=== PATIENT | female | born 1945 | race Caucasian/White ===

== ENCOUNTER → 2017-01-17 | Outpatient (REF) | payer MEDICARE | LOC: M SFHCWAGY 11:22 | PROVIDERS: ATTEND Nurse Practitioner Women's Health | DX: N90.4 Leukoplakia of vulva (principal); Z80.41 Family history of malignant neoplasm of ovary; Z87.42 Personal history of other diseases of the female genital tract ==

== ENCOUNTER → 2017-01-17 | Outpatient (CLI) | payer MEDICARE ==
[~2017-01-17] MED LIST: ALLO100T PO; AMIT25TA PO; ASPI81TA85 PO; ATEN25TA PO; ATOR1TAB19 PO; CALC600T57 PO; FLUO20CA8 PO; GABA-282 PO; MULT1CHW39 PO; VITA100037 PO; VITA50TA PO
--- NOTE | 2017-01-17 12:51 | REPMRS ---
Patient History The patient states she had a clinical breast exam in 01/04 Family history of ovarian cancer in mother at age 50 or over. Benign stereotactic core biopsy of the left breast, 2009. Digital Woman Screen Mammo: January 17, 2017 - Exam #: [id number] Bilateral CC and MLO view(s) were taken. Technologist: Arlyn Larkin, Technologist Prior study comparison: January 17, 2016, digital woman screen mammo performed at [facility]. November 05, 2014, digital woman screen mammo performed at [facility] to [facility]. FINDINGS: There are scattered fibroglandular densities. There has been no change in the appearance of the mammogram from the prior studies. There is a mild amount of residual fibroglandular tissue which is fairly symmetric. A left breast stereotactic clip again seen. There is no interval development of dominant mass, architectural distortion, or clustered microcalcification suggestive of malignancy. Scattered lymph nodes are seen in the axillae. There are scattered, small, benign calcifications of doubtful clinical significance. No significant changes when compared with prior studies. ASSESSMENT: BI-RADS/ACR category 2 mammogram. Benign finding(s). Recommendation Routine screening mammogram in 1 year (for women over age 40). This mammogram was interpreted with the aid of an FDA-approved computer-aided dectection system. A. Negative x-ray reports should not delay biopsy if a dominant or clinically suspicious mass is present. B. Four to eight percent of cancers are not identified by mammography. C. Adenosis and dense breast may obscure an underlying neoplasm. Electronically Signed By: Tommie Ortiz MD 01/17/17 1722
== END ==
LOC: M WHC 11:07
PROVIDERS: ATTEND Nurse Practitioner Women's Health
DX: Z12.31 Encounter for screening mammogram for malignant neoplasm of breast (principal); Z92.89 Personal history of other medical treatment; Z80.41 Family history of malignant neoplasm of ovary; N90.4 Leukoplakia of vulva; Z87.42 Personal history of other diseases of the female genital tract
CPT/HCPCS: 86304; G0101; G0202

== ENCOUNTER → 2017-02-21 | Outpatient (CLI) | payer MEDICARE ==
[~2017-02-21] VITALS: Ht 177.8 cm; Wt 99.8 kg
[~2017-02-21] MED LIST changes: +NS 1,000 ML IV ONE; +PROPOFOL 200 MG/20 ML VIAL As Ordered ONE
--- NOTE | 2017-02-21 09:57 | ROOR ---
Patient Name: Brooklyn Montiel Procedure Date: 02/21/2017 9:32 AM Date of : 1945 Age: 71 Room: [facility] Gender: Female Note Status: Finalized Procedure: Colonoscopy Indications: High risk colon cancer surveillance: Personal history of colonic polyps Providers: Roshan Shirley Jr, MD Referring MD: Jeanette Ortiz DO Requesting Provider: Medicines: Propofol per Anesthesia Complications: No immediate complications. Procedure: Pre-Anesthesia Assessment: - Prior to the procedure, a History and Physical was performed, and patient medications and allergies were reviewed. The patient is competent. The risks and benefits of the procedure and the sedation options and risks were discussed with the patient. All questions were answered and informed consent was obtained. Patient identification and proposed procedure were verified by the physician and the nurse in the pre-procedure area and in the procedure room. Mental Status Examination: alert and oriented. Airway Examination: normal oropharyngeal airway and neck mobility. Respiratory Examination: clear to auscultation. CV Examination: normal. ASA Grade Assessment: II - A patient with mild systemic disease. After reviewing the risks and benefits, the patient was deemed in satisfactory condition to undergo the procedure. The anesthesia plan was to use moderate sedation / analgesia (conscious sedation). Immediately prior to administration of medications, the patient was re-assessed for adequacy to receive sedatives. The heart rate, respiratory rate, oxygen saturations, blood pressure, adequacy of pulmonary ventilation, and response to care were monitored throughout the procedure. The physical status of the patient was re-assessed after the procedure. The Colonoscope was introduced through the anus and advanced to the hepatic flexure. The patient tolerated the procedure well. The quality of the bowel preparation was fair and poor. The colonoscopy was performed with moderate difficulty due to poor bowel prep and significant looping. Successful completion of the procedure was aided by changing the patient's position, using manual pressure, withdrawing and reinserting the scope and straightening and shortening the scope to obtain bowel loop reduction. Findings: The perianal exam findings include non-thrombosed external hemorrhoids, non-thrombosed internal hemorrhoids, internal hemorrhoids that prolapse with straining, but spontaneously regress to the resting position (Grade II) and internal hemorrhoids that prolapse with straining, but require manual replacement into the anal canal (Grade III). The rectum, recto-sigmoid colon, sigmoid colon, descending colon, transverse colon and hepatic flexure appeared normal. The sigmoid colon, descending colon and transverse colon were significantly redundant. Impression: - Preparation of the colon was fair. - Preparation of the colon was poor. - Non-thrombosed external hemorrhoids, non-thrombosed internal hemorrhoids, internal hemorrhoids that prolapse with straining, but spontaneously regress to the resting position (Grade II) and internal hemorrhoids that prolapse with straining, but require manual replacement into the anal canal (Grade III) found on perianal exam. - The rectum, recto-sigmoid colon, sigmoid colon, descending colon, transverse colon and hepatic flexure are normal. - Redundant colon. - No specimens collected. Recommendation: - Discharge patient to home (ambulatory). - Repeat colonoscopy in 5 years for surveillance. Roshan Shirley MD Roshan Shirley Jr, MD 02/21/2017 9:56:33 AM This report has been signed electronically. Number of Addenda: 0 Note Initiated On: 02/21/2017 9:32 AM Estimated Blood Loss: Estimated blood loss: none.
[2017-02-21 10:10] VITALS: BP 128/65
== END | disposition home or self-care (01) ==
LOC: M OPP 08:40
PROVIDERS: ATTEND Surgery
DX: Z12.11 Encounter for screening for malignant neoplasm of colon (principal); Z86.010 Personal history of colon polyps; Q43.8 Other specified congenital malformations of intestine; K64.4 Residual hemorrhoidal skin tags; K64.1 Second degree hemorrhoids; K64.2 Third degree hemorrhoids; I10 Essential (primary) hypertension; E78.00 Pure hypercholesterolemia, unspecified; E11.9 Type 2 diabetes mellitus without complications; M19.90 Unspecified osteoarthritis, unspecified site; G62.9 Polyneuropathy, unspecified; Z98.0 Intestinal bypass and anastomosis status; Z88.2 Allergy status to sulfonamides; Z88.1 Allergy status to other antibiotic agents; Z79.899 Other long term (current) drug therapy; Z79.82 Long term (current) use of aspirin
CPT/HCPCS: 99156; 99157; G0105

== ENCOUNTER → 2018-01-20 | Outpatient (REF) | payer OTHER, MEDICARE | LOC: M SFHCWAGY 11:38 | DX: Z80.41 Family history of malignant neoplasm of ovary (principal); Z87.42 Personal history of other diseases of the female genital tract; Z53.8 Procedure and treatment not carried out for other reasons ==

== ENCOUNTER → 2018-01-20 | Outpatient (CLI) | payer OTHER | LOC: M WHC 10:57 | DX: Z01.419 Encounter for gynecological examination (general) (routine) without abnormal findings (principal); Z12.31 Encounter for screening mammogram for malignant neoplasm of breast (principal); Z80.41 Family history of malignant neoplasm of ovary; Z92.89 Personal history of other medical treatment; N90.4 Leukoplakia of vulva | CPT/HCPCS: 77067 ==

== ENCOUNTER → 2018-04-25 | Outpatient (CLI) | payer OTHER | LOC: M RAD 10:34 | DX: M79.651 Pain in right thigh (principal) | CPT/HCPCS: 78315 ==

== ENCOUNTER → 2019-02-17 | Outpatient (CLI) | payer MEDICARE ==
[~2019-02-17] MED LIST changes: -GABA-282 PO; +GABA-843 PO; -MULT1CHW39 PO; +MULT200T7 PO; -NS 1,000 ML IV ONE; -PROPOFOL 200 MG/20 ML VIAL As Ordered ONE; -VITA100037 PO; +VITA100067 PO; -VITA50TA PO; +VITA50TA47 PO
--- NOTE | 2019-02-17 13:49 | REPMRS ---
Patient History The patient states she had a clinical breast exam in 01/2019. Family history of ovarian cancer at age 50 or over in mother. Benign stereotactic core biopsy of the left breast, 2009. No Hormone Replacement Therapy 3D TOMOSYNTHESIS WAS PERFORMED. Digital Woman Screen Mammo: February 17, 2019 - Exam #: [id number] Bilateral CC and MLO view(s) were taken. Technologist: Jessica Diop, Technologist Prior study comparison: January 20, 2018, digital woman screen mammo performed at [facility]. January 17, 2017, digital woman screen mammo performed at [facility]. FINDINGS: There are scattered fibroglandular densities. There has been no change in the appearance of the mammogram from the prior studies. There is a mild amount of residual fibroglandular tissue which is fairly symmetric. There is no interval development of dominant mass, architectural distortion, or clustered microcalcification suggestive of malignancy. Assessment: BI-RADS/ACR category 1 mammogram. Negative Mammogram. Recommendation Routine screening mammogram in 1 year (for women over age 40). This mammogram was interpreted with the aid of an FDA-approved computer-aided dectection system. Electronically Signed By: Sonido Giraldo MD 02/17/19 [id number]
== END ==
LOC: M WHC 11:46
PROVIDERS: ATTEND Nurse Practitioner Women's Health
DX: Z01.419 Encounter for gynecological examination (general) (routine) without abnormal findings (principal); Z12.31 Encounter for screening mammogram for malignant neoplasm of breast; Z86.011 Personal history of benign neoplasm of the brain; Z80.41 Family history of malignant neoplasm of ovary; Z87.42 Personal history of other diseases of the female genital tract; Z79.899 Other long term (current) drug therapy; N90.1 Moderate vulvar dysplasia; Z90.710 Acquired absence of both cervix and uterus
CPT/HCPCS: 77063; 77067; 86304; G0101

== ENCOUNTER → 2019-02-17 | Outpatient (REF) | payer MEDICARE | LOC: M SFHCWAGY 11:46 | PROVIDERS: ATTEND Nurse Practitioner Women's Health | DX: Z80.41 Family history of malignant neoplasm of ovary (principal); Z87.42 Personal history of other diseases of the female genital tract ==

== ENCOUNTER → 2020-04-11 | Outpatient (CLI) | payer MEDICARE ==
[~2020-04-11] MED LIST changes: +FLUO20CA20 PO; -FLUO20CA8 PO
--- NOTE | 2020-04-12 09:47 | REPMRS ---
Patient History The patient states she had a clinical breast exam in March 2020. Family history of ovarian cancer at age 50 or over in mother. Benign stereotactic core biopsy of the left breast, 2009. No Hormone Replacement Therapy Digital Woman Screen Mammo: April 11, 2020 - Exam #: [id number] Bilateral CC and MLO view(s) were taken. Technologist: Valery Wellington, Technologist Prior study comparison: February 17, 2019, bilateral digital woman screen mammo performed at [facility]. January 20, 2018, digital woman screen mammo performed at [facility]. January 17, 2017, digital woman screen mammo performed at [facility]. FINDINGS: The breast tissue is almost entirely fat. The Volpara volumetric breast density category is: A. There has been no change in the appearance of the mammogram from the prior studies. There is no interval development of dominant mass, architectural distortion, or grouped microcalcification typical of malignancy. 3-D tomosynthesis shows no additional findings. Assessment: BI-RADS/ACR category 1 mammogram. Negative Mammogram. Recommendation Routine screening mammogram of both breasts in 1 year (for women over age 40). This patient's Lifetime Breast Cancer RIsk is estimated at 3.8 %. This mammogram was interpreted with the aid of an FDA-approved computer-aided dectection system. Electronically Signed By: Jimmy Arguello MD 04/12/20 0946
== END ==
LOC: M WHC 11:19
PROVIDERS: ATTEND Nurse Practitioner Women's Health
DX: Z01.419 Encounter for gynecological examination (general) (routine) without abnormal findings (principal); Z12.31 Encounter for screening mammogram for malignant neoplasm of breast; Z80.41 Family history of malignant neoplasm of ovary; Z86.018 Personal history of other benign neoplasm
CPT/HCPCS: 36415; 77063; 77067; 86304; G0101

== ENCOUNTER → 2020-04-11 | Outpatient (REF) | payer MEDICARE | LOC: M PLALAB 12:24 | PROVIDERS: ATTEND Nurse Practitioner Women's Health | DX: Z80.41 Family history of malignant neoplasm of ovary (principal) ==

== ENCOUNTER → 2020-04-17 | Outpatient (CLI) | payer MEDICARE | LOC: M LABSMTC 11:43 | PROVIDERS: ATTEND Family Medicine | DX: Z11.59 Encounter for screening for other viral diseases (principal); Z03.89 Encounter for observation for other suspected diseases and conditions ruled out | CPT/HCPCS: C9803; U0003 ==

== ENCOUNTER → 2020-06-22 | Outpatient (REF) | payer MEDICARE ==
[~2020-06-22] MED LIST changes: -ASPI81TA85 PO; +ASPI81TA86 PO
== END ==
LOC: M LAB REF 14:05
PROVIDERS: ATTEND Dermatology
DX: L90.5 Scar conditions and fibrosis of skin (principal); L72.0 Epidermal cyst
CPT/HCPCS: 10080; 11102; 17000; 17003; 17110; 88305; G0463

== ENCOUNTER → 2021-04-12 | Outpatient (REF) | payer MEDICARE ==
[~2021-04-12] MED LIST changes: -AMIT25TA PO; +AMIT25TA17 PO; +GABA-282 PO; -GABA-843 PO
== END ==
LOC: M PLALAB 12:07
PROVIDERS: ATTEND Nurse Practitioner Women's Health
DX: Z79.899 Other long term (current) drug therapy (principal); Z80.41 Family history of malignant neoplasm of ovary

== ENCOUNTER → 2021-04-12 | Outpatient (CLI) | payer MEDICARE ==
--- NOTE | 2021-04-12 13:34 | REPMRS ---
Patient History The patient states she had a clinical breast exam in March 2021. Family history of ovarian cancer at age 50 or over in mother. Benign stereotactic core biopsy of the left breast, 2009. No Hormone Replacement Therapy Moderna vaccine 11/2020 left arm. 12/2020 left arm, pt unable to remember exact dates. Patient states no breast complaints today. Patient has signed MRS History Sheet. Digital Woman Screen Mammo: April 12, 2021 - Exam #: [id number] Bilateral CC and MLO view(s) were taken. Technologist: RT Meenakshi Prior study comparison: April 11, 2020, bilateral digital woman screen mammo performed at [facility]. February 17, 2019, bilateral digital woman screen mammo performed at [facility]. January 20, 2018, digital woman screen mammo performed at [facility]. FINDINGS: The breast tissue is almost entirely fat. The Volpara volumetric breast density category is: A. There is a needle biopsy marker clip noted in the right breast. There has been no change in the appearance of the mammogram from the prior studies. There is no interval development of dominant mass, architectural distortion, or grouped microcalcification typical of malignancy. 3-D tomosynthesis shows no additional findings. Assessment: BI-RADS/ACR category 2 mammogram. Benign Findings. Recommendation Routine screening mammogram of both breasts in 1 year (for women over age 40). This patient's [facility] Lifetime Breast Cancer RIsk is estimated at 3.5 %. This mammogram was interpreted with the aid of an FDA-approved computer-aided dectection system. Electronically Signed By: Jimmy Arguello MD 04/12/21 0482
== END ==
LOC: M WHC 11:07
PROVIDERS: ATTEND Nurse Practitioner Women's Health
DX: Z12.31 Encounter for screening mammogram for malignant neoplasm of breast (principal); Z80.41 Family history of malignant neoplasm of ovary; Z86.018 Personal history of other benign neoplasm
CPT/HCPCS: 36415; 77063; 77067; 86304; G0101

== ENCOUNTER → 2021-11-17 | Outpatient (REF) | payer MEDICARE ==
[~2021-11-17] MED LIST changes: +FLUO-96 PO; -FLUO20CA20 PO
== END ==
LOC: M LAB REF 15:46
PROVIDERS: ATTEND Otolaryngology
DX: E04.1 Nontoxic single thyroid nodule (principal)

== ENCOUNTER → 2022-05-13 | Outpatient (CLI) | payer MEDICARE ==
[~2022-05-13] MED LIST changes: +APAP500T10 PO; +ASPI81TA26 PO; +CYAN500T14 PO; +LISI5TAB11 PO; +METF500T13 PO; +PAME10CA PO; +VITA100093 PO
== END ==
LOC: M LABSMTC 11:47
PROVIDERS: ATTEND Anesthesiology
DX: Z11.52 Encounter for screening for COVID-19 (principal); Z20.822 Contact with and (suspected) exposure to COVID-19

== ENCOUNTER 2022-05-16 11:11 | Day surgery (SDC) | payer MEDICARE ==
[~2022-05-16] VITALS: Ht 177.8 cm; Wt 105.0 kg
[~2022-05-16 11:11] MED LIST changes: +NS 1,000 ML IV ONE
[2022-05-16] MEDS ORDERED: propofoL 200 MG/20 ML VIAL As Ordered ONE ×4 (12:07→13:03)
[2022-05-16] MEDS ORDERED: LIDOCAINE 2% 100MG/5ML SDV (FOR ANES.) As Ordered ONE (12:07)
[2022-05-16 14:26] VITALS: BP 164/70
== END 2022-05-16 14:25 | disposition home or self-care (01) ==
LOC: M OPP 11:11
PROVIDERS: ATTEND Surgery
DX: R19.5 Other fecal abnormalities (principal); G47.30 Sleep apnea, unspecified; I48.91 Unspecified atrial fibrillation; I11.0 Hypertensive heart disease with heart failure; E11.9 Type 2 diabetes mellitus without complications; Z91.89 Other specified personal risk factors, not elsewhere classified; L90.0 Lichen sclerosus et atrophicus; Z80.0 Family history of malignant neoplasm of digestive organs; Z80.41 Family history of malignant neoplasm of ovary; Z86.19 Personal history of other infectious and parasitic diseases; Z79.02 Long term (current) use of antithrombotics/antiplatelets; Z79.1 Long term (current) use of non-steroidal anti-inflammatories (NSAID); Z79.82 Long term (current) use of aspirin; Z79.84 Long term (current) use of oral hypoglycemic drugs; Z79.899 Other long term (current) drug therapy; Z88.0 Allergy status to penicillin; Z88.1 Allergy status to other antibiotic agents; Z88.8 Allergy status to other drugs, medicaments and biological substances; Z91.040 Latex allergy status

== ENCOUNTER → 2022-10-01 | Outpatient (CLI) | payer MEDICARE ==
[~2022-10-01] MED LIST changes: -NS 1,000 ML IV ONE
== END ==
LOC: M WHC 10:01
PROVIDERS: ATTEND Nurse Practitioner Family
DX: Z12.31 Encounter for screening mammogram for malignant neoplasm of breast (principal)

== ENCOUNTER → 2022-10-01 | Outpatient (CLI) | payer MEDICARE | LOC: M PLALAB 11:16 | PROVIDERS: ATTEND Nurse Practitioner Family | DX: Z79.899 Other long term (current) drug therapy (principal); Z80.41 Family history of malignant neoplasm of ovary ==

== ENCOUNTER → 2023-02-26 | Outpatient (REF) | payer MEDICARE | LOC: M SFHCDERM 18:07 | PROVIDERS: ATTEND Nurse Practitioner Family | DX: L85.8 Other specified epidermal thickening (principal) ==

== ENCOUNTER → 2023-04-18 | Outpatient (REF) | payer MEDICARE | LOC: M SFHCDERM 14:55 | PROVIDERS: ATTEND Nurse Practitioner Family | DX: L90.5 Scar conditions and fibrosis of skin (principal) ==

== ENCOUNTER → 2024-01-14 | Outpatient (CLI) | payer OTHER ==
[~2024-01-14] MED LIST changes: -AMIT25TA17 PO; +AMIT25TA19 PO
== END ==
LOC: M PLALAB 16:50
PROVIDERS: ATTEND Nurse Practitioner Family
DX: Z01.419 Encounter for gynecological examination (general) (routine) without abnormal findings (principal); Z80.41 Family history of malignant neoplasm of ovary; Z79.02 Long term (current) use of antithrombotics/antiplatelets; Z79.84 Long term (current) use of oral hypoglycemic drugs; Z88.1 Allergy status to other antibiotic agents; Z88.2 Allergy status to sulfonamides; Z88.8 Allergy status to other drugs, medicaments and biological substances; Z98.84 Bariatric surgery status

== ENCOUNTER → 2024-01-14 | Outpatient (CLI) | payer MEDICARE, OTHER | LOC: M WHC 14:49 | PROVIDERS: ATTEND Nurse Practitioner Family | DX: Z12.31 Encounter for screening mammogram for malignant neoplasm of breast (principal); R92.323 Mammographic fibroglandular density, bilateral breasts ==

== ENCOUNTER → 2024-12-16 | Outpatient (CLI) | payer MEDICARE ==
[~2024-12-16] MED LIST changes: +GABA-1172 PO; -GABA-282 PO; -MULT200T7 PO; +MULT200T9 PO
== END ==
LOC: M RAD 10:36
PROVIDERS: ATTEND Otolaryngology
DX: E04.2 Nontoxic multinodular goiter (principal)

== ENCOUNTER → 2025-01-14 | Outpatient (CLI) | payer MEDICARE | LOC: M WHC 16:13 | PROVIDERS: ATTEND Nurse Practitioner Family | DX: Z13.820 Encounter for screening for osteoporosis (principal); M85.851 Other specified disorders of bone density and structure, right thigh; M85.852 Other specified disorders of bone density and structure, left thigh; N95.1 Menopausal and female climacteric states ==

== ENCOUNTER → 2025-01-25 | Outpatient (CLI) | payer MEDICARE | LOC: M WHC 12:46 | PROVIDERS: ATTEND Nurse Practitioner Family | DX: N63.23 Unspecified lump in the left breast, lower outer quadrant (principal); R92.322 Mammographic fibroglandular density, left breast | CPT/HCPCS: 76642; 77066; G0279 ==

== ENCOUNTER → 2025-01-28 | Outpatient (CLI) | payer MEDICARE | LOC: M PLALAB 12:54 | PROVIDERS: ATTEND Nurse Practitioner Family | DX: Z12.73 Encounter for screening for malignant neoplasm of ovary (principal); Z80.41 Family history of malignant neoplasm of ovary ==

== ENCOUNTER → 2025-09-28 | Outpatient (REF) | payer MEDICARE | LOC: M SFHCDERM 17:40 | PROVIDERS: ATTEND Dermatology | DX: L82.0 Inflamed seborrheic keratosis (principal) ==